=== PATIENT | male | born 1960 | race Asian ===

== ENCOUNTER 2017-05-12 10:06 | Emergency (ER) | payer OTHER, BC ==
[~2017-05-12] VITALS: Ht 167.6 cm; Wt 79.4 kg
[~2017-05-12 10:06] MED LIST: NKM
[2017-05-12 10:16] VITALS: BP 154/64
[2017-05-12] MEDS ORDERED: Tetanus/Diptheria/Pertussis Vaccine 0.5ml Syr IM ONE ×2 (11:00→11:01)
[2017-05-12 11:04] LABS: BASOPHILS % (AUTO) 1.3 % (0.0-2.0); EOSINOPHILS % (AUTO) 6.4 % (0.0-3.0); HEMATOCRIT 46.3 % (42.0-52.0); LYMPHOCYTES % (AUTO) 32.8 % (20.0-45.0); MEAN CORPUSCULAR VOLUME 95 FL (80-99); MONOCYTES % (AUTO) 8.2 % (1.0-10.0); NEUTROPHILS % (AUTO) 51.3 % (45.0-75.0); PLATELET COUNT 199 K/UL (150-450); RED BLOOD COUNT 4.86 M/UL (4.70-6.10); RED CELL DISTRIBUTION WIDTH 10.8 % (11.6-14.8); WHITE BLOOD COUNT 6.9 K/UL (4.8-10.8)
[2017-05-12 11:10] VITALS: BP 154/64
[2017-05-12 11:24] LABS: ANION GAP 8 mmol/L (5-15); BLOOD UREA NITROGEN 14 mg/dL (7-18); CALCIUM 9.1 MG/DL (8.5-10.1); CARBON DIOXIDE 25 MMOL/L (21-32); CHLORIDE 105 MMOL/L (98-107); CREATININE 0.9 MG/DL (0.55-1.30); POTASSIUM 3.8 MMOL/L (3.5-5.1); SODIUM 138 MMOL/L (136-145)
[2017-05-12 11:28] LABS: ALANINE AMINOTRANSFERASE 82 U/L (12-78); ALBUMIN 3.8 G/DL (3.4-5.0); ALKALINE PHOSPHATASE 70 U/L (46-116); AMYLASE 77 U/L (25-115); ASPARTATE AMINO TRANSFERASE 46 U/L (15-37); BILIRUBIN,DIRECT 0.1 MG/DL (0.0-0.3); BILIRUBIN,TOTAL 0.3 MG/DL (0.2-1.0); PHOSPHORUS 3.6 MG/DL (2.5-4.9)
--- NOTE | 2017-05-13 14:30 | Emergency Room Report ---
History of Present Illness General Chief Complaint: General Complaint Source: Patient Present Illness HPI 56-year-old male presents to ED for evaluation. Patient is here for needle stick injury at work today. 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 Patient notes needlestick injury to his left hand. Denies any pain. Tetanus unknown. No other aggravating relieving factors. Denies any other associated symptoms Allergies: Coded Allergies: MEPERIDINE (Verified Allergy, Mild, 03/26/15) ACETAMINOPHEN (Verified Allergy, Unknown, 05/12/17) HYDROCODONE (Verified Allergy, Unknown, 05/12/17) Patient History Past Medical History: none Past Surgical History: none Pertinent Family History: none Social History: Denies: smoking, alcohol use, drug use Immunizations: UTD Reviewed Nursing Documentation: PMH: Agreed, PSxH: Agreed Nursing Documentation-PMH Past Medical History: No Stated History Review of Systems All Other Systems: negative except mentioned in HPI Physical Exam Vital Signs Date Time Temp Pulse Resp B/P (MAP) Pulse Ox O2 Delivery O2 Flow Rate FiO2 05/12/17 10:16 99.0 77 18 154/64 97 Room Air 99.0 Sp02 EP Interpretation: reviewed, normal General Appearance: no apparent distress, alert, GCS 15, non-toxic Head: normocephalic, atraumatic Eyes: bilateral eye normal inspection, bilateral eye PERRL ENT: hearing grossly normal, normal pharynx, no angioedema, normal voice Neck: full range of motion, supple/symm/no masses Respiratory: chest non-tender, lungs clear, normal breath sounds, speaking full sentences Cardiovascular #1: regular rate, rhythm, no edema Cardiovascular #2: 2+ carotid (R), 2+ carotid (L), 2+ radial (R), 2+ radial (L) , 2+ dorsalis pedis (R), 2+ dorsalis pedis (L) Gastrointestinal: normal bowel sounds, non tender, soft, non-distended, no guarding, no rebound Rectal: deferred Genitourinary: normal inspection, no CVA tenderness Musculoskeletal: back normal, gait/station normal, normal range of motion, non- tender Neurologic: alert, oriented x3, responsive, motor strength/tone normal, sensory intact, speech normal Psychiatric: judgement/insight normal, memory normal, mood/affect normal, no suicidal/homicidal ideation Reflexes: 3+ bicep (R), 3+ bicep (L), 3+ tricep (R), 3+ tricep (L), 3+ knee (R) , 3+ knee (L) Skin: normal color, no rash, warm/dry, well hydrated Lymphatic: no adenopathy Medical Decision Making Diagnostic Impression: Primary Impression: Needlestick injury accident ER Course 56-year-old male presents to ED with superficial needle stick injury to left hand. Occurred while in the operating room Patient placed on stretcher. After initial history physical exam reveals a male in no acute distress. I see no signs of skin penetration where patient states needle stick injury occurred. I ordered labs which included hepatitis panel and rapid HIV test. HIV test negative. I explained risks and benefits of taking prophylaxis medications. Patient stateshe does not want to start prophylaxis at this time. I agree with patient assessment Diagnoses-needle stick injury Table and discharged to home. Followup with PMD/employee health. Return to ED if symptoms recur or worsen Last Vital Signs Date Time Temp Pulse Resp B/P (MAP) Pulse Ox O2 Delivery O2 Flow Rate FiO2 05/12/17 11:10 77 14 154/64 99 Room Air 05/12/17 10:16 99.0 99.0 Status: improved Disposition: HOME, SELF-CARE Condition: Stable Departure Forms: Return to Work Return to Work Date: May 12, 2017 Work Restrictions: None Patient Instructions: Needle Stick Injury, [id number] APOLINAR CHRIS M.D. May 13, 2017 14:30
== END 2017-05-12 11:13 | disposition home or self-care (01) ==
LOC: EMR 10:36
DX: S60.922A Unspecified superficial injury of left hand, initial encounter (principal); W46.0XXA Contact with hypodermic needle, initial encounter; Y92.239 Unspecified place in hospital as the place of occurrence of the external cause; Y99.0 Civilian activity done for income or pay; Z23 Encounter for immunization; Z88.6 Allergy status to analgesic agent; Z88.5 Allergy status to narcotic agent
CPT/HCPCS: 36415; 80069; 80076; 82150; 85025; 86703; 86803; 87517; 90471; 90715; 99283